=== PATIENT | female | born 1970 | race Caucasian/White ===

== ENCOUNTER 2017-08-24 17:07 | Observation (INO) | payer OTHER ==
[2017-08-24 17:15] VITALS: TEMP 97.8
--- NOTE | 2017-08-24 17:15 | PDOC ---
Rapid Medical Evaluation Time Seen by Provider: 08/24/17 17:12 Medical Evaluation: Allergies Allergy/AdvReac Type Severity Reaction Status Date / Time No Known Allergies Allergy Verified 08/24/17 17:13 08/24/17 17:13 I have performed a brief in person evaluation of this patient. The patient presents with chief complaint of : pt c/o mid sternal chest "discomfort " on and off today. pt with history of HTN denies radiation of pain, . history of left breast CA 2 yrs ago with lumpectomy chemo and radiation . Pertinent PE findings: 5/10 mid sternal chest pain. I have ordered the following: EKG done in triage signed by The patient will proceed to the ER for further evaluation.
[2017-08-24] MEDS ORDERED: ASPIRIN 81 MG CHEWABLE TABLETS PO ONE (17:23)
[2017-08-24] MEDS ORDERED: ASPIRIN 81 MG CHEWABLE TABLETS ONE (17:40)
[2017-08-24 18:06] LABS: BASOPHIL 0.4 % (0-2.0); EOSINOPHIL 0.2 % (0-4.5); MCH 29.4 pg (25.7-33.7); MCHC 33.8 g/dl (32.0-36.0); MEAN CELL VOLUME 86.9 fl (80-96); MEAN PLT VOLUME 8.4 fl (7.5-11.1); NEUTROPHILS 83.9 % (42.8-82.8); PLATELET COUNT 190 K/MM3 (134-434); RDW 15.2 % (11.6-15.6); WHITE BLOOD COUNT 12.5 K/mm3 (4.0-10.0)
[2017-08-24 18:27] LABS: INR 1.01 (0.82-1.09); PROTHROMBIN TIME (PATIENT) 11.4 SEC (9.98-11.88)
[2017-08-24 18:32] LABS: ANION GAP 10 (8-16); BILIRUBIN,TOTAL 0.3 mg/dL (0.2-1.0); CALCIUM 8.7 mg/dL (8.5-10.1); CO2 27 mmol/L (21-32); CREATININE 0.8 mg/dL (0.55-1.02); GLUCOSE,RANDOM 108 mg/dL (74-106); MAGNESIUM 2.1 mg/dL (1.8-2.4); SGOT/AST 26 U/L (15-37); TOT PROT 7.4 g/dl (6.4-8.2)
[2017-08-24 18:39] LABS: ALK PHOS 48 U/L (45-117); CPK 91 IU/L (26-192); SGPT/ALT 56 U/L (12-78); TROPONIN I < 0.02 ng/ml (0.00-0.05)
--- NOTE | 2017-08-24 19:17 | PDOC ---
History of Present Illness <Ericka Tineo - Last Filed: 08/24/17 19:22> <Neena Hernandez - Last Filed: 08/24/17 21:06> - General Chief Complaint: Chest Pain Stated Complaint: CHEST PAIN Time Seen by Provider: 08/24/17 17:12 - History of Present Illness Initial Comments: 08/24/17 19:22 The patient is a 47 year old female, with a significant past medical history of breast cancer, HTN, who presents to the emergency department with chest pain this morning. Patient began experiencing a discomfort in her chest things morning and describes it as intermittent, non- radiating, and pressure-like. Rated it an 8/10 this morning and currently at a 5/10 now around 4:30 pm. She states pain lessens when standing. She states that 1 week ago she saw Dr. Velasco for palpitations and a at home BP of 143/95. Dr. Velasco did an Echo, blood work, and Holter report and is supposed to go over the results this wednesday. From the preliminary results, everything came back normal. She denies recent fevers, chills, headache or dizziness. She denies recent nausea, vomit, diarrhea or constipation. She denies recent dysuria, frequency, urgency or hematuria. She denies recent shortness of breath. Allergies: NKA Past surgical history: left lumpectomy (2014), myomectomy Social history: Nonsmoker. Denies EtOH use and recreational drug use. 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 Velasco (Ericka Tineo) Past History <Ericka Tineo - Last Filed: 08/24/17 19:22> - Past Medical History Anemia: No Asthma: No Cancer: Yes (Left Breast) Cardiac Disorders: No CVA: No COPD: No CHF: No Dementia: No Diabetes: No GI Disorders: No Disorders: No HTN: Yes Hypercholesterolemia: No Liver Disease: No Seizures: No Thyroid Disease: No - Surgical History Abdominal Surgery: Yes (Myomectomy) Appendectomy: No Cardiac Surgery: No Cholecystectomy: No Lung Surgery: No Neurologic Surgery: No Orthopedic Surgery: No - Suicide/Smoking/Psychosocial Hx Smoking History: Former smoker Have you smoked in the past 12 months: No If you are a former smoker, when did you quit?: 1996 Information on smoking cessation initiated: No Hx Alcohol Use: No Drug/Substance Use Hx: No Substance Use Type: None Hx Substance Use Treatment: No <Neena Hernandez - Last Filed: 08/24/17 21:06> - Past Medical History Allergies/Adverse Reactions: Allergies Allergy/AdvReac Type Severity Reaction Status Date / Time No Known Allergies Allergy Verified 08/24/17 17:13 Home Medications: Ambulatory Orders Losartan Potassium [Cozaar -] 50 mg PO BID 05/02/15 Aspirin [Ecotrin] 81 mg PO DAILY 08/24/17 Tamoxifen Citrate 20 mg PO DAILY 08/24/17 Cardiac Specific PMH - Complaint Specific PMHX Pacemaker: No <Neena Hernandez - Last Filed: 08/24/17 21:06> Review of Systems <Ericka Tineo - Last Filed: 08/24/17 19:22> <Neena Hernandez - Last Filed: 08/24/17 21:06> - Review of Systems Comments:: 08/24/17 19:22 CONSTITUTIONAL: Absent: fever, no chills, no fatigue EYES: Absent: visual changes ENT: Absent: ear pain, no sore throat CARDIOVASCULAR: Present:: chest pain Absent: no palpitations RESPIRATORY: Absent: cough, no SOB GI: Absent: abdominal pain, no nausea, no vomiting, no constipation, no diarrhea GENITOURINARY: Absent: dysuria, no frequency, no hematuria MUSCULOSKELETAL: Absent: back pain, no arthralgia, no myalgia SKIN: Absent: rash NEURO: Absent: headache (Ericka Tineo) *Physical Exam <Ericka Tineo - Last Filed: 08/24/17 19:22> <Neena Hernandez - Last Filed: 08/24/17 21:06> - Vital Signs Last Vital Signs Temp Pulse Resp BP Pulse Ox 97.8 F 84 18 132/97 97 08/24/17 17:13 08/24/17 20:22 08/24/17 20:22 08/24/17 20:22 08/24/17 20:22 - Physical Exam Comments: 08/24/17 19:23 Well-appearing, well-nourished. No apparent distress. HEENT: Normocephalic, atraumatic. PERRL, EOM intact. CARDIOVASCULAR: Normal S1, S2. Regular rate and rhythm. PULMONARY: Clear to auscultation bilaterally. ABDOMEN: Soft, non-distended, non-tender. EXTREMITIES: Normal ROM in all four extremities. No gross deformities. SKIN: Warm, dry. No rash NEUROLOGICAL: No focal neurological deficits. (Ericka Tineo) ED Treatment Course - LABORATORY CBC & Chemistry Diagram: 08/24/17 17:38 08/24/17 17:38 <Ericka Tineo - Last Filed: 08/24/17 19:22> - LABORATORY CBC & Chemistry Diagram: 08/24/17 17:38 08/24/17 17:38 <Neena Hernandez - Last Filed: 08/24/17 21:06> - ADDITIONAL ORDERS Additional order review: Laboratory Results 08/24/17 08/24/17 08/24/17 18:45 17:38 17:38 PT with INR INR Sodium 141 Potassium 3.7 Chloride 104 Carbon Dioxide 27 Anion Gap 10 BUN 14 D Creatinine 0.8 D Creat Clearance w eGFR > 60 Random Glucose 108 H D Calcium 8.7 Magnesium 2.1 Total Bilirubin 0.3 D AST 26 D ALT 56 D Alkaline Phosphatase 48 Creatine Kinase 91 Troponin I < 0.02 B-Natriuretic Peptide 30.98 Total Protein 7.4 Albumin 4.0 Serum , Qual Negative 08/24/17 17:38 PT with INR 11.40 INR 1.01 Sodium Potassium Chloride Carbon Dioxide Anion Gap BUN Creatinine Creat Clearance w eGFR Random Glucose Calcium Magnesium Total Bilirubin AST ALT Alkaline Phosphatase Creatine Kinase Troponin I B-Natriuretic Peptide Total Protein Albumin Serum , Qual 08/24/17 17:38 RBC 4.44 MCV 86.9 MCHC 33.8 RDW 15.2 MPV 8.4 D Neutrophils % 83.9 H Lymphocytes % 10.8 Monocytes % 4.7 Eosinophils % 0.2 Basophils % 0.4 - Medications Given in the ED: ED Medications Discontinued Medications Generic Name Dose Route Start Last Admin Trade Name Freq PRN Reason Stop Dose Admin Al Hydroxide/Mg Hydroxide 30 ml 08/24/17 19:42 08/24/17 20:01 Mylanta Oral Suspension - PO 08/24/17 19:43 30 ml ONCE ONE Administration Aspirin 162 mg 08/24/17 17:23 08/24/17 17:45 Asa - PO 08/24/17 17:24 162 mg ONCE ONE Administration Pantoprazole Sodium 40 mg 08/24/17 19:42 08/24/17 20:01 Protonix - PO 08/24/17 19:43 40 mg ONCE ONE Administration *DC/Admit/Observation/Transfer <Ericka Tineo - Last Filed: 08/24/17 19:22> - Discharge Dispostion Admit: Yes <Neena Hernandez - Last Filed: 08/24/17 21:06> Diagnosis at time of Disposition: Chest pain Qualifiers: Chest pain type: unspecified Qualified Code(s): R07.9 - Chest pain, unspecified ; R07.9 - Chest pain, unspecified - Referrals Referrals: Luanne Chamorro MD [Primary Care Provider] - - Attestations Scribe Attestion: 08/24/17 19:23 Documentation prepared by Ericka Tineo, acting as emergency medical tech for Neena Hernandez MD. (Ericka Tineo)
[2017-08-24] MEDS ORDERED: MAG HYDROX/AL HYDROX/SIMETH 30 ML UNIT-DOSE CUP PO ONE (19:42)
[2017-08-24] MEDS ORDERED: PANTOPRAZOLE 40 MG TABLET (FP) PO ONE (19:42)
[2017-08-24] MEDS ORDERED: PANTOPRAZOLE 40 MG TABLET (FP) ONE (19:55)
[2017-08-24] MEDS ORDERED: MAG HYDROX/AL HYDROX/SIMETH 30 ML UNIT-DOSE CUP ONE (19:56)
[2017-08-25 02:09] LABS: CPK 72 IU/L (26-192); TROPONIN I < 0.02 ng/ml (0.00-0.05)
--- NOTE | 2017-08-25 08:40 | HP ---
Admitting History and Physical - Primary Care Physician PCP: Luanne Chamorro - Admission Chief Complaint: chest pain History of Present Illness: noted retrosternal pressure like pain yesterday, resolved in 20 minutes, however recured later in afternoon. came to er concerned about chest pain. blood pressure has been elevated recently, increased losartan 50 to bid, echo was done results are pending. no change in diet, activity, weight. normally walks a lot without problems. History Source: Patient Limitations to Obtaining History: No Limitations - Past Medical History Cardiovascular: Yes: HTN ...LMP: 04/27/15 Heme/Onc: Yes: Cancer (left breast invasive ductal ca er/pr pos. her neg. s/p lumpectomy, rt and chemo in 2014) - Past Surgical History Past Surgical History: Yes: (x3) Additional Past Surgical History: myomectomy 1999 - Smoking History Smoking history: Former smoker Have you smoked in the past 12 months: No If you are a former smoker, when did you quit?: 1996 - Alcohol/Substance Use Hx Alcohol Use: No - Social History ADL: Independent History of Recent Travel: No Home Medications - Allergies Allergies/Adverse Reactions: Allergies Allergy/AdvReac Type Severity Reaction Status Date / Time No Known Allergies Allergy Verified 08/24/17 17:13 - Home Medications Home Medications: Ambulatory Orders Losartan Potassium [Cozaar -] 50 mg PO BID 05/02/15 Aspirin [Ecotrin] 81 mg PO DAILY 08/24/17 Tamoxifen Citrate 20 mg PO DAILY 08/24/17 Family Disease History - Family Disease History Family Disease History: Heart Disease: Father (ppm) Other Family History: aunt with breast ca Review of Systems - Review of Systems Constitutional: reports: No Symptoms Eyes: reports: No Symptoms HENT: reports: No Symptoms Neck: reports: No Symptoms Cardiovascular: reports: Chest Pain (as noted, resolved by now spontaneously) Respiratory: reports: No Symptoms Gastrointestinal: reports: No Symptoms Genitourinary: reports: No Symptoms Integumentary: reports: No Symptoms Neurological: reports: No Symptoms Hematology/Lymphatic: reports: No Symptoms Psychiatric: reports: No Symptoms Physical Examination Vital Signs: Vital Signs Temperature 97.8 F 08/24/17 17:13 Pulse Rate 85 08/25/17 07:39 Respiratory Rate 18 08/25/17 07:39 Blood Pressure 127/68 08/25/17 07:39 O2 Sat by Pulse Oximetry (%) 96 08/25/17 07:39 Constitutional: Yes: Well Nourished, No Distress, Calm Eyes: Yes: EOM Intact HENT: Yes: Normocephalic Neck: Yes: Trachea Midline Cardiovascular: Yes: Regular Rate and Rhythm Respiratory: Yes: CTA Bilaterally Gastrointestinal: Yes: Normal Bowel Sounds, Soft Musculoskeletal: Yes: WNL Extremities: Yes: WNL Edema: No Peripheral Pulses WNL: Yes Neurological: Yes: WNL ...Motor Strength: WNL Psychiatric: Yes: WNL Labs: CBC, BMP 08/24/17 17:38 08/24/17 17:38 cardiac enzymes x2 negative Imaging - Results EKG: Image Reviewed Problem List - Problems (1) Hypertension Code(s): I10 - ESSENTIAL (PRIMARY) HYPERTENSION Qualifiers: Hypertension type: essential hypertension Qualified Code(s): I10 - Essential (primary) hypertension (2) Chest pain Code(s): R07.9 - CHEST PAIN, UNSPECIFIED Qualifiers: Chest pain type: unspecified Qualified Code(s): R07.9 - Chest pain, unspecified (3) Breast cancer, left Code(s): C50.912 - MALIGNANT NEOPLASM OF UNSPECIFIED SITE OF LEFT FEMALE BREAST Qualifiers: Breast location: unspecified site of breast Estrogen receptor status: positive Patient sex: female Qualified Code(s): C50.912 - Malignant neoplasm of unspecified site of left female breast; Z17.0 - Estrogen receptor positive status [ER+]; Z17.0 - Estrogen receptor positive status [ER+] Assessment/Plan r/o CAD check lipids nuclear stress test in am-if ok, can f/up as outpt for further care
[2017-08-25] MEDS ORDERED: LOSARTAN POTASSIUM 50 MG TABLET (FP) PO SCH (10:00)
[2017-08-25] MEDS ORDERED: TAMOXIFEN CITRATE 10 MG TABLET PO SCH (10:00)
[2017-08-25] MEDS ORDERED: ASPIRIN COATED 81 MG TABLET.EC PO SCH (10:00)
--- NOTE | 2017-08-25 13:53 | CON.CARD ---
Consult - History of Present Illness History of Present Illness: Cardiology Consultation Chief Complaint: Chest pain. Past History: 47 y/o white female known case of hypertension, recently complained of palpations and was found to have elevated blood pressure, medications were adjusted but she continued to have palpation and poorly controlled blood pressure. Prior to admission she developed retrosternal pressure like chest discomfort which persisted for 30 min. Pain was nonradiating , nonexertional, nonpleutric. There were no associated symptoms of SOB, diaphoresis, nausea, or vomiting. No history of diabetes mellitus or hypercholestermia. Surgical history: 1.C-sections x3. 2.s/p left breast lumpectomy. 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 Has a social drink and drinks 3 cups of coffee. No history of drug use. Family history: Father has HTN and CAD s/p AL, ventricular arrhythmia s/p ICD. Mother and sister has HTN. Has a brother who is healthy. Allergies: Minocycline (rash). Home Medication List Active Medications Generic Name Dose Route Start Last Admin Trade Name Freq PRN Reason Stop Dose Admin Aspirin 81 mg 08/25/17 10:00 08/25/17 09:17 Ecotrin - PO 81 mg DAILY CHERYLE Administration Losartan Potassium 50 mg 08/25/17 10:00 08/25/17 09:17 Cozaar - PO 50 mg BID CHERYLE Administration Tamoxifen Citrate 20 mg 08/25/17 10:00 08/25/17 09:17 Tamoxifen Citrate PO 20 mg DAILY CHERYLE Administration Review of Systems: Constitutional: No history of chills, fever or night sweats. No history of unintentional weight loss. HEENT: No history of headaches, diplopia, blurred vision. No history of epistaxis or hoarseness. No tinnitus. Cardiovascular: See history of present illness. Respiratory: See history of present illness. No history of cough, expectoration or hemoptysis. No history of tuberculosis. GI: No history of nausea, vomiting, melena, or hematemesis. No history of abdominal pain or discomfort, no change in bowel habits reported. See history of present illness. 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 No history of focal weakness. Endocrine: No history of polyuria or polydipsia. No history of intolerance to cold or warm weather. Musculoskeletal: No arthralgias or history of myalgia. : No history of frequency or hematuria. HEME: No history of bleeding, anemia or ecchymosis. O: 47# year old female was in no acute distress, no pallor, cyanosis, clubbing , or jaundice. Last Vital Signs Temp Pulse Resp BP Pulse Ox 97.8 F 85 18 127/68 96 08/24/17 17:13 08/25/17 07:39 08/25/17 07:39 08/25/17 07:39 08/25/17 07:39 Weight (180 pounds). Blood pressure. Pulse. . BMI 27.4kg/m2 Neck: Supple, no JVD, negative HJR, carotids were equal and upstrokes were normal, no thyromegaly appreciated. Heart: PMI was in the 5th intercostal space, no heaves or thrills, S1 and S2 were normal. Nonejection click along the LSB and apex. No murmurs or gallops were appreciated. Lungs: Clear on auscultation bilaterally. Abdomen: Soft, nontender, no hepatosplenomegaly appreciated, and no palpable masses were felt. Extremities: No calf tenderness or dependent edema. Pulses are normal. ECG: Normal sinus rhythm, incomplete right bundle branch block. Normal ST and T waves. Lab Data: Laboratory Results - last 24 hr 08/24/17 08/24/17 08/24/17 17:38 17:38 17:38 WBC 12.5 H D RBC 4.44 Hgb 13.0 Hct 38.6 MCV 86.9 MCH 29.4 MCHC 33.8 RDW 15.2 Plt Count 190 MPV 8.4 D Neutrophils % 83.9 H Lymphocytes % 10.8 Monocytes % 4.7 Eosinophils % 0.2 Basophils % 0.4 PT with INR 11.40 INR 1.01 Sodium 141 Potassium 3.7 Chloride 104 Carbon Dioxide 27 Anion Gap 10 BUN 14 D Creatinine 0.8 D Creat Clearance w eGFR > 60 Random Glucose 108 H D Calcium 8.7 Magnesium 2.1 Total Bilirubin 0.3 D AST 26 D ALT 56 D Alkaline Phosphatase 48 Creatine Kinase 91 Troponin I < 0.02 B-Natriuretic Peptide Total Protein 7.4 Albumin 4.0 Serum , Qual 08/24/17 08/24/17 08/25/17 17:38 18:45 01:31 WBC RBC Hgb Hct MCV MCH MCHC RDW Plt Count MPV Neutrophils % Lymphocytes % Monocytes % Eosinophils % Basophils % PT with INR INR Sodium Potassium Chloride Carbon Dioxide Anion Gap BUN Creatinine Creat Clearance w eGFR Random Glucose Calcium Magnesium Total Bilirubin AST ALT Alkaline Phosphatase Creatine Kinase 72 Troponin I < 0.02 B-Natriuretic Peptide 30.98 Total Protein Albumin Serum , Qual Negative A: 1.Chest pain syndrome, etiology to be determined. 2.Hypertension, poorly controlled. 3.Palpitation, arrhythmia need to be excluded. 4.s/p left breast carcinoma. Recommendation: 1.Myoview stress test results are pending. 2.Continue losartan. 3.Add HCTZ 25mg po daily 4.If blood pressure is not well controlled add a beta [place]. 5.Counselled regarding diet, curtailing salt intake and exercise. 6.Further suggestion will depend on the results of the stress test. Prognosis: Guarded. Attestation: Documentation prepared by Christian Valerio, acting as medical administrative for Ronn Velasco MD. - Past Medical History Cardio/Vascular: Yes: HTN ...LMP: 04/27/15 - Past Surgical History Past Surgical History: Yes: (x3) - Alcohol/Substance Use Hx Alcohol Use: No - Smoking History Smoking history: Former smoker Have you smoked in the past 12 months: No If you are a former smoker, when did you quit?: 1996 - Social History ADL: Independent History of Recent Travel: No Home Medications - Allergies Allergies/Adverse Reactions: Allergies Allergy/AdvReac Type Severity Reaction Status Date / Time No Known Allergies Allergy Verified 08/24/17 17:13 - Home Medications Home Medications: Ambulatory Orders Losartan Potassium [Cozaar -] 50 mg PO BID 05/02/15 Aspirin [Ecotrin] 81 mg PO DAILY 08/24/17 Tamoxifen Citrate 20 mg PO DAILY 08/24/17 Family Disease History - Family Disease History Family Disease History: Heart Disease: Father (ppm) Other Family History: aunt with breast ca Vital Signs: Vital Signs Temperature 97.8 F 08/24/17 17:13 Pulse Rate 85 08/25/17 07:39 Respiratory Rate 18 08/25/17 07:39 Blood Pressure 127/68 08/25/17 07:39 O2 Sat by Pulse Oximetry (%) 96 08/25/17 07:39 - Other Data Labs, Other Data: CBC, BMP 08/24/17 17:38 08/24/17 17:38 INR, PTT INR 1.01 (0.82-1.09) 08/24/17 17:38 Troponin, BNP 08/24/17 08/24/17 08/25/17 17:38 17:38 01:31 Troponin I < 0.02 < 0.02 B-Natriuretic Peptide 30.98 Troponin, BNP 08/24/17 08/24/17 08/25/17 17:38 17:38 01:31 Troponin I < 0.02 < 0.02 B-Natriuretic Peptide 30.98
[2017-08-25 15:01] VITALS: BP 119/89; PULSE 88; BMI 27.5
[2017-08-25] MEDS ORDERED: NITROGLYCERIN SUBLINGUAL 1/150 0.4 MG TAB SL ONE (15:11)
[2017-08-26] MEDS ORDERED: METOPROLOL SUCCINATE 25 MG TAB.SR.24H (FP) PO SCH (10:00)
--- NOTE | 2017-08-27 11:20 | EKG ---
Test Reason : Blood Pressure : / mmHG Vent. Rate : 096 BPM Atrial Rate : 096 BPM P-R Int : 120 ms QRS Dur : 102 ms QT Int : 364 ms P-R-T Axes : 028 025 033 degrees QTc Int : 459 ms NORMAL SINUS RHYTHM INCOMPLETE RIGHT BUNDLE BRANCH BLOCK ABNORMAL ECG Confirmed by JUNIOR PENA MD ([id number] on 08/27/2017 11:20:20 AM Referred By: Confirmed By:JUNIOR PENA MD
== END 2017-08-25 14:50 | disposition home or self-care (01) ==
LOC: JER 17:07 → UNDOADMOB 21:06 → INTOOBSV 21:06 → JERBED 21:06
PROVIDERS: ADMIT Internal Medicine; ATTEND Internal Medicine
DX: R07.9 Chest pain, unspecified (principal); I10 Essential (primary) hypertension; Z79.82 Long term (current) use of aspirin; C50.912 Malignant neoplasm of unspecified site of left female breast; Z17.0 Estrogen receptor positive status [ER+]
CPT/HCPCS: 36415; 78452-TC; 80053; 82550; 83735; 83880; 84484; 84703; 85025; 85610; 93005; 93010; 93017; 99284-25; A9502; G0378